=== PATIENT | female | born 1950 | race Caucasian/White ===

== ENCOUNTER 2018-03-11 04:42 | Inpatient (IN) | payer OTHER ==
[2018-03-11] VITALS (7 sets, daily range): BP systolic 11–144; BP diastolic 50–75
[~2018-03-11] VITALS: Ht 149.9 cm; Wt 90.0 kg
[~2018-03-11 04:42] MED LIST: ADVIL200 M3 PO; ALBUTEROL17 GM IH; BENICAR HCT 401 EAC1 PO; CALTRATE 6001 TABLE1 PO; CALTRATE 6001 TABLET PO; CELEBREX200 MG PO; COLACE100 MG PO; DARVOCET-N 1001 EAC1 PO; DEXILANT60 MG PO; DULERA 200 MCG/13 GM IH; ENABLEX15 MG PO; FLOMAX0.4 MG PO; KEFLEX500 MG PO; LASIX40 MG PO; LOMOTIL TABLET1 EACH PO; LOW DOSE ASPIRI81 M1 PO; MECLIZINE HCL25 M2 PO; MECLIZINE HCL25 MG PO; ONE DAILY TABL1 EAC1 PO; PERCOCET 5/31 TABLET PO; PROAIR HFA8.5 GM IH; PROBIOTIC FORM1 EACH PO; PROTONIX40 MG PO; SINGULAIR10 MG PO; SPIRIVA1 INHALATI IH; SYMBICORT60 INHALAT IH; SYNTHROID200 MCG PO; THEO-24400 MG PO; THEO-DUR200 MG PO; TOVIAZ4 MG PO; VICODIN 5-3001 EACH PO; VOLTAREN75 MG PO; WYGESIC,DARV1 TABLET PO; ZOCOR80 MG PO; ZOFRAN4 MG PO; [UNRECOGNIZED DRUG - OTHER]
[2018-03-11 05:32] LABS: HEMATOCRIT 34.5 % (36.0-46.0); HEMOGLOBIN 11.4 G/DL (11.9-15.5); MCH 26.9 PG (29.0-34.0); MCV 81.4 FL (83-99); PLATELET COUNT 175 K/uL (156-360); RBC DIS.WIDTH-CV 14.8 % (11.8-14.6); RBC DIS.WIDTH-SD 43.5 % (39-53); RED BLOOD COUNT 4.24 M/uL (3.80-5.20); WHITE BLOOD COUNT 5.1 K/uL (4.1-10.2)
[2018-03-11 06:04] LABS: CHLORIDE 108 mEq/L (99-109); POTASSIUM 3.4 mEq/L (3.7-5.4); SODIUM 142 mEq/L (136-147)
[2018-03-11 06:06] LABS: ALBUMIN 3.7 g/dL (3.2-4.8)
[2018-03-11 06:07] LABS: TOTAL PROTEIN 5.9 g/dL (6.4-8.3)
[2018-03-11 06:08] LABS: TOTAL BILIRUBIN 2.7 mg/dL (0.0-1.0)
[2018-03-11 06:09] LABS: GLUCOSE 190 mg/dL (70-99)
[2018-03-11 06:12] LABS: AST (GOT) 141 IU/L (2-34); CREATININE 1.8 mg/dL (0.6-1.3); GFR ESTIMATE (CALCULATED) 30 mL/min/
[2018-03-11 06:15] LABS: ALKALINE PHOSPHATASE 261 IU/L (3-129)
[2018-03-11 06:16] LABS: UREA NITROGEN (BUN) 42 mg/dL (9-23)
[2018-03-11 06:18] LABS: ALT (GPT) 189 IU/L (3-49); LIPASE 143 U/L (1.0-51.0)
[2018-03-11] MEDS ORDERED: CARTIA XT120 MG PO (09:22)
[2018-03-11] MEDS ORDERED: AVALIDE 300/1 TABLET PO (09:23)
[2018-03-11] MEDS ORDERED: LIPITOR80 MG PO (09:27)
[2018-03-11] MEDS ORDERED: PROTONIX40 MG PO (09:28)
[2018-03-11] MEDS ORDERED: COUMADIN4 MG PO (09:32)
[2018-03-11] MEDS ORDERED: COUMADIN5 MG PO (09:33)
[2018-03-11] MEDS ORDERED: KETOCONAZOLE60 GM TP (09:35)
[2018-03-11 10:24] LABS: INTER. NORMALIZED RATIO 13.1
[2018-03-11 13:24] LABS: TROP-I INTERPRETATION NEGATIVE; TROPONIN-I < 0.01 ng/mL (0.0-0.30)
[2018-03-12 00:04] VITALS: BP 132/60
[2018-03-12 03:01] VITALS: BP 120/57
[2018-03-12 05:44] LABS: INTER. NORMALIZED RATIO 2.3
[2018-03-12 05:52] LABS: CHLORIDE 108 MEQ/L (99-109); SODIUM 138 MEQ/L (136-147); UREA NITROGEN (BUN) 28 mg/dL (9-23)
[2018-03-12 06:15] LABS: CREATININE 1.1 MG/DL (0.6-1.3); GFR ESTIMATE (CALCULATED) 53 mL/min/; GLUCOSE 102 mg/dL (70-99); POTASSIUM 4.1 MEQ/L (3.7-5.4)
[2018-03-12 08:05] VITALS: BP 175/76
[2018-03-12 10:09] LABS: ALBUMIN 3.2 G/DL (3.2-4.8); ALKALINE PHOSPHATASE 203 IU/L (3-129); ALT (GPT) 136 IU/L (3-49); AST (GOT) 107 IU/L (2-34); DIRECT BILIRUBIN 4.2 mg/dL (0.0-0.3); TOTAL BILIRUBIN 6.5 MG/DL (0.0-1.0); TOTAL PROTEIN 5.4 G/DL (6.4-8.3)
[2018-03-12 11:32] VITALS: BP 130/70
[2018-03-12 12:29] LABS: INTER. NORMALIZED RATIO 1.8
[2018-03-12 15:35] VITALS: BP 154/70
[2018-03-12 19:19] VITALS: BP 112/66
[2018-03-13] VITALS (8 sets, daily range): BP systolic 108–137; BP diastolic 54–70
[2018-03-13 06:11] LABS: CHLORIDE 106 MEQ/L (99-109); CREATININE 0.8 MG/DL (0.6-1.3); GFR ESTIMATE (CALCULATED) > 59 mL/min/; GLUCOSE 97 mg/dL (70-99); POTASSIUM 3.5 MEQ/L (3.7-5.4); SODIUM 137 MEQ/L (136-147); UREA NITROGEN (BUN) 20 mg/dL (9-23)
[2018-03-13 12:36] LABS: INTER. NORMALIZED RATIO 1.4
[2018-03-13 12:39] LABS: PTT 32.4 SEC (25-37)
[2018-03-14 02:21] LABS: HEMATOCRIT 28.3 % (36.0-46.0); MCH 26.8 PG (29.0-34.0); MCHC 32.5 G/DL (30.0-36.0); MCV 82.5 FL (83-99); PLATELET COUNT 159 K/uL (156-360); RBC DIS.WIDTH-CV 15.7 % (11.8-14.6); RBC DIS.WIDTH-SD 47.8 % (39-53); RED BLOOD COUNT 3.43 M/uL (3.80-5.20); WHITE BLOOD COUNT 3.3 K/uL (4.1-10.2)
[2018-03-14 02:29] LABS: CHLORIDE 108 mEq/L (99-109); POTASSIUM 3.6 mEq/L (3.7-5.4); SODIUM 137 mEq/L (136-147)
[2018-03-14 02:42] LABS: TOTAL BILIRUBIN 1.7 mg/dL (0.0-1.0)
[2018-03-14 02:46] LABS: ALBUMIN 2.9 g/dL (3.2-4.8)
[2018-03-14 02:49] LABS: GLUCOSE 88 mg/dL (70-99); TOTAL PROTEIN 5.2 g/dL (6.4-8.3)
[2018-03-14 02:52] LABS: CREATININE 0.8 mg/dL (0.6-1.3); GFR ESTIMATE (CALCULATED) > 59 mL/min/
[2018-03-14 02:53] LABS: UREA NITROGEN (BUN) 12 mg/dL (9-23)
[2018-03-14 02:55] LABS: ALT (GPT) 91 IU/L (3-49)
[2018-03-14 02:57] LABS: ALKALINE PHOSPHATASE 190 IU/L (3-129); AST (GOT) 62 IU/L (2-34)
[2018-03-14 03:15] LABS: BAND NEUTROPHILS 10.4 % (0-8.0); BASOPHILS 0.9 %; EOSINOPHIL ABS CT 0; GIANT PLATELETS 2+; NUCLEATED RBC'S 0.9; PLAT.SUFFICIENCY ADEQUATE; POIKILOCYTOSIS 1+; SEG.NEUTROPHILS 48.7 % (46.0-76.0)
[2018-03-14 04:58] VITALS: BP 130/63
[2018-03-14 06:14] LABS: HEMOGLOBIN 9.2 G/DL (11.9-15.5)
[2018-03-14 06:49] VITALS: BP 134/65
[2018-03-14 11:59] VITALS: BP 104/86
[2018-03-14 15:45] VITALS: BP 152/71
[2018-03-14 19:26] VITALS: BP 142/65
[2018-03-14 23:52] VITALS: BP 135/65
[2018-03-15 03:52] VITALS: BP 127/62
[2018-03-15 07:07] VITALS: BP 142/70
[2018-03-15 08:15] LABS: CHLORIDE 108 MEQ/L (99-109); CREATININE 0.7 MG/DL (0.6-1.3); GFR ESTIMATE (CALCULATED) > 59 mL/min/; GLUCOSE 88 mg/dL (70-99); SODIUM 140 MEQ/L (136-147); UREA NITROGEN (BUN) 6 mg/dL (9-23)
[2018-03-15 11:27] VITALS: BP 155/70
[2018-03-15 15:00] VITALS: BP 141/64
[2018-03-15 19:12] VITALS: BP 151/89
[2018-03-15 22:33] VITALS: BP 170/76
[2018-03-16 03:37] VITALS: BP 175/79
[2018-03-16 07:06] VITALS: BP 168/75
[2018-03-16 07:54] LABS: ALBUMIN 2.9 G/DL (3.2-4.8); ALT (GPT) 48 IU/L (3-49); CHLORIDE 109 MEQ/L (99-109); CREATININE 0.6 MG/DL (0.6-1.3); GFR ESTIMATE (CALCULATED) > 59 mL/min/; GLUCOSE 78 mg/dL (70-99); POTASSIUM 3.8 MEQ/L (3.7-5.4); SODIUM 140 MEQ/L (136-147); TOTAL PROTEIN 5.4 G/DL (6.4-8.3); UREA NITROGEN (BUN) 5 mg/dL (9-23)
[2018-03-16 07:56] LABS: ALKALINE PHOSPHATASE 143 IU/L (3-129); AST (GOT) 33 IU/L (2-34); TOTAL BILIRUBIN 1.4 MG/DL (0.0-1.0)
[2018-03-16 07:57] LABS: CHLORIDE 109 MEQ/L (99-109); CREATININE 0.6 MG/DL (0.6-1.3); GFR ESTIMATE (CALCULATED) > 59 mL/min/; GLUCOSE 78 mg/dL (70-99); POTASSIUM 3.8 MEQ/L (3.7-5.4); SODIUM 140 MEQ/L (136-147); UREA NITROGEN (BUN) 5 mg/dL (9-23)
[2018-03-16 11:25] VITALS: BP 166/71
[2018-03-16 15:22] VITALS: BP 169/70
[2018-03-16 19:18] VITALS: BP 146/76
[2018-03-16 23:25] VITALS: BP 158/76
[2018-03-17 04:21] VITALS: BP 150/72
[2018-03-17 06:22] LABS: CHLORIDE 108 MEQ/L (99-109); CREATININE 0.6 MG/DL (0.6-1.3); GFR ESTIMATE (CALCULATED) > 59 mL/min/; GLUCOSE 78 mg/dL (70-99); POTASSIUM 3.9 MEQ/L (3.7-5.4); SODIUM 142 MEQ/L (136-147); UREA NITROGEN (BUN) 5 mg/dL (9-23)
[2018-03-17 08:00] VITALS: BP 133/71
[2018-03-17 10:51] LABS: ALBUMIN 3.1 G/DL (3.2-4.8); ALKALINE PHOSPHATASE 136 IU/L (3-129); ALT (GPT) 43 IU/L (3-49); AST (GOT) 35 IU/L (2-34); TOTAL BILIRUBIN 1.4 MG/DL (0.0-1.0); TOTAL PROTEIN 6.1 G/DL (6.4-8.3)
[2018-03-17 10:54] LABS: DIRECT BILIRUBIN 0.6 mg/dL (0.0-0.3)
[2018-03-17 15:20] VITALS: BP 113/71
[2018-03-17 20:21] VITALS: BP 138/73
[2018-03-18] VITALS (7 sets, daily range): BP systolic 123–161; BP diastolic 70–81
[2018-03-18 11:19] LABS: HEMATOCRIT 36.2 % (36.0-46.0); MCH 26.3 PG (29.0-34.0); MCHC 32.3 G/DL (30.0-36.0); MCV 81.3 FL (83-99); RBC DIS.WIDTH-SD 44.8 % (39-53); WHITE BLOOD COUNT 3.6 K/uL (4.1-10.2)
[2018-03-18 11:21] LABS: HEMOGLOBIN 11.7 G/DL (11.9-15.5); PLATELET COUNT 212 K/uL (156-360); RED BLOOD COUNT 4.45 M/uL (3.80-5.20)
[2018-03-18 11:29] LABS: ALBUMIN 3.5 g/dL (3.2-4.8); CHLORIDE 103 mEq/L (99-109); POTASSIUM 3.7 mEq/L (3.7-5.4); SODIUM 137 mEq/L (136-147)
[2018-03-18 11:33] LABS: TOTAL BILIRUBIN 1.7 mg/dL (0.0-1.0)
[2018-03-18 11:35] LABS: ALKALINE PHOSPHATASE 181 IU/L (3-129); CREATININE 0.8 mg/dL (0.6-1.3); GFR ESTIMATE (CALCULATED) > 59 mL/min/
[2018-03-18 11:36] LABS: AST (GOT) 35 IU/L (2-34); UREA NITROGEN (BUN) 5 mg/dL (9-23)
[2018-03-18 11:38] LABS: ALT (GPT) 46 IU/L (3-49)
[2018-03-18 11:43] LABS: GLUCOSE 112 mg/dL (70-99); TOTAL PROTEIN 7.3 g/dL (6.4-8.3)
[2018-03-18 12:02] LABS: ABS NEUTROPHIL COUNT 1.5; ANISOCYTOSIS 1+; ATYPICAL LYMPHOCYTE 16.7 %; BASOPHILS 0.9 %; EOSINOPHIL ABS CT 0.1; EOSINOPHILS 1.7 % (0-5.0); LYMPHOCYTES 31.6 % (15.0-45.0); MONOCYTES 8.8 % (0-9.0); OVALOCYTES 1+; PLAT.SUFFICIENCY ADEQUATE; POIKILOCYTOSIS 1+; POLYCHROMASIA 1+; SEG.NEUTROPHILS 40.3 % (46.0-76.0); SMUDGE CELLS 5.3
[2018-03-19 00:35] VITALS: BP 134/73
[2018-03-19 03:57] VITALS: BP 133/76
[2018-03-19 08:24] VITALS: BP 139/79
[2018-03-19 12:17] VITALS: BP 116/66
[2018-03-19 15:47] VITALS: BP 131/65
[2018-03-19] MEDS ORDERED: KLOR-CON M1010 MEQ PO (16:21)
== END 2018-03-19 18:40 | disposition home health service (06) | DRG 445 ==
LOC: EME 04:42 → 4EAST 08:41 → EDOF 08:41 → ENRESERV 08:41 → 2EASTP 11:05 → ENRESERV 13:27 → 4EAST 14:47 → ENPENDDIS 03-19 → 4EAST 03-19 18:40
PROVIDERS: Emergency Medicine; Internal Medicine; Internal Medicine Cardiovascular Disease; Thoracic Surgery (Cardiothoracic Vascular Surgery)
DX: K80.62 Calculus of gallbladder and bile duct with acute cholecystitis without obstruction (principal); N17.9 Acute kidney failure, unspecified; E87.2 Acidosis; E87.6 Hypokalemia; E86.0 Dehydration; D64.9 Anemia, unspecified; E78.5 Hyperlipidemia, unspecified; E03.9 Hypothyroidism, unspecified; I10 Essential (primary) hypertension; J44.9 Chronic obstructive pulmonary disease, unspecified; I44.2 Atrioventricular block, complete; I48.0 Paroxysmal atrial fibrillation; K58.9 Irritable bowel syndrome, unspecified; R79.1 Abnormal coagulation profile; E11.9 Type 2 diabetes mellitus without complications; R00.1 Bradycardia, unspecified; I48.3 Typical atrial flutter; K21.9 Gastro-esophageal reflux disease without esophagitis; E66.01 Morbid (severe) obesity due to excess calories; Z96.651 Presence of right artificial knee joint; Z68.39 Body mass index [BMI] 39.0-39.9, adult; Z79.01 Long term (current) use of anticoagulants; Z79.84 Long term (current) use of oral hypoglycemic drugs
CPT/HCPCS: 71045; 71046; 74176; 80048; 80053; 80076; 81003; 82948; 83605; 83690; 84484; 85025; 85027; 85610; 85730; 87641; 93005; 93306; 99281; 99284; C1785; C1892; C1894; C1898; J1644; J1815; J1956; J2250; J2270; J2405; J3010; J3430; J3480; J7030; J7050; S0020; S0028; S0030